=== PATIENT | female | born 1985 | race Caucasian/White ===

== ENCOUNTER 2017-08-17 16:06 | Emergency (ER) | payer SELFPAY ==
[2017-08-17] MEDS ORDERED: HYDROcodone/Acetaminophen 5/325 mg Tablet ONE (16:34)
[2017-08-17] MEDS ORDERED: Cyclobenzaprine 10 MG TAB ONE (16:35)
--- NOTE | 2017-08-17 17:03 | RAD ---
TWO VIEWS LEFT FEMUR: Date: 08-17-17 History: Injury to left femur. FINDINGS: There is no evidence of a fracture, dislocation, or other osseous abnormality involving the left femu r. T-shaped intrauterine contraceptive device overlies the central pelvis. IMPRESSION: No acute osseous abnormality of the left femur. POS: [facility]
== END 2017-08-17 17:14 | disposition home or self-care (01) ==
LOC: MADERS 16:06
DX: S80.02XA Contusion of left knee, initial encounter (principal); S70.12XA Contusion of left thigh, initial encounter; F17.210 Nicotine dependence, cigarettes, uncomplicated; V86.99XA Unspecified occupant of other special all-terrain or other off-road motor vehicle injured in nontraffic accident, initial encounter